=== PATIENT | male | born 1970 | race Caucasian/White ===

== ENCOUNTER 2021-03-07 10:01 | Outpatient (REF) | payer OTHER, SELFPAY ==
[2021-03-07 14:33] LABS: Alanine Aminotransferase 44 U/L (0-40); Albumin Level 4.5 g/dL (3.5-5.0); Alkaline Phosphatase 55 U/L (39-117); Anion Gap 12 (12-20); Aspartate Amino Transferase 28 U/L (5-37); Bilirubin Total 0.6 mg/dL (0.0-1.0); Blood Urea Nitrogen 16 mg/dL (9-16); Calcium 9.5 mg/dL (8.4-10.2); Carbon Dioxide 27 mmol/L (22-29); Chloride 108 mmol/L (96-108); Cholesterol 227 mg/dL; Estimated Glomerular Filt Rate > 60; Glucose Fasting 108 mg/dL (60-99); HDL Cholesterol 52 mg/dL; LDL Cholesterol Calculated 127 mg/dl; Potassium 4.9 mmol/L (3.3-5.1); Sodium 142 mmol/L (135-145); Total Protein 7.3 g/dL (6.5-8.0); Triglycerides 243 mg/dL
[2021-03-07 14:56] LABS: Prostate Specific Antigen Scr 0.88 ng/mL (<0.05-4.0); TSH reflex Free T4 0.96 uIU/mL (0.32-4.0)
== END 2021-03-07 10:02 | disposition home or self-care (01) ==
LOC: HO.WFDLNP 10:01
PROVIDERS: Visit Provider Family Medicine
DX: Z12.5 Encounter for screening for malignant neoplasm of prostate (principal); Z00.00 Encounter for general adult medical examination without abnormal findings
CPT/HCPCS: 80053; 80061; 84153; 84443

== ENCOUNTER 2021-03-22 14:09 | Outpatient (REF) | payer OTHER, SELFPAY ==
--- NOTE | ~2021-03-22 | XR_ITS ---
EXAMINATION: XR CHEST CLINICAL INFORMATION: Viral infection COMPARISON: None TECHNIQUE: 2 views of the chest were obtained. FINDINGS: No significant abnormality is noted involving the heart, lungs, mediastinum, bony thorax or soft tissues. XR/XR chest 2V IMPRESSION: No acute disease.
[2021-03-22 20:01] LABS: Influenza A PCR NEGATIVE (Negative); Influenza B PCR NEGATIVE (Negative); Resp Syncy Virus RNA Qual PCR NEGATIVE (Negative); SARS COV2 PCR INHOUSE NEGATIVE (Negative)
== END 2021-03-22 14:10 | disposition home or self-care (01) ==
LOC: HO.HMGCX 14:09
PROVIDERS: PCP Family Medicine; Visit Provider Family Medicine
DX: B34.9 Viral infection, unspecified (principal); Z20.822 Contact with and (suspected) exposure to COVID-19
CPT/HCPCS: 0241U; 36415; 71046; U0003; U0005

== ENCOUNTER 2021-06-22 09:53 | Outpatient (REF) | payer OTHER, SELFPAY ==
--- NOTE | ~2021-06-22 | XR_ITS ---
EXAMINATION: XR CERVICAL SPINE CLINICAL INFORMATION: Anesthesia of the skin. COMPARISON: None TECHNIQUE: 3 views of the cervical spine were obtained. FINDINGS: There is normal cervical lordosis. The vertebral heights and alignment is normal. There is loss of C6-C7 disc height with ventral spondylosis. Rest of the disc heights are normal. No visible acute fracture, dislocation or lytic process seen. There is posterior calcification along C3 spinous process. The soft tissues are normal. XR/XR cervical spine 2V IMPRESSION: There are degenerative disc changes C6-C7 disc level with ventral spondylosis. No visible acute fracture, dislocation or lytic process seen.
== END 2021-06-22 09:54 | disposition home or self-care (01) ==
LOC: HO.HMGCX 09:53
PROVIDERS: PCP Family Medicine; Visit Provider Family Medicine
DX: R20.0 Anesthesia of skin (principal); M79.601 Pain in right arm
CPT/HCPCS: 72040

== ENCOUNTER 2021-07-11 10:58 | Outpatient (RCR) | payer OTHER, SELFPAY ==
--- NOTE | 2021-07-11 15:54 | MHC.PT.EP ---
[facility] [place] Office [place] [facility] [place] Office [address] [place] [address] [phone] F: [phone] F: [phone] F: [phone] F: [phone] Physical Therapy Plan of Care Date of Evaluation: Date of Surgery: NA Diagnosis: R ARM PAIN AND R ARM NUMBNESS Assessment: Pt IS 51 YO RHD M WHO WORKS [employer] REFERRED TO PT FROM DR SÁNCHEZ WITH R UE PAIN/NUMBNESS. Pt PRESENTS WITH RADIAL NERVE INVOLVEMENT R UE. SXS IN R THUMB INCREASE WITH R CERV LAT FLEX, R SHLDER DEPRESSION. SXS DECREASE WHEN R SHLDER IS FLEXED (R ARM OVERHEAD) SHLDER IS ELEVATED (ON ARM REST OR WHILE STANDING) AND IN SUP. Pt WITH NEG PHALENS SIGN (SLIGHT + FOR THUMB SXS WITH REVERSE PHALENS). STRENGTH R SHLDER AND ELBOW TEST OUT WNLS ON R AND ROM AT R ELBOW AND SHLDER ARE WNLS. Pt WITH SOME DEGENERATIVE FINDINGS WITH CERV XRAY. AWAITING NEURO CONSULT. Pt ALSO WITH TTP/NERVE IRRITATION AT MEDIAL ELBOW R (ULNAR GROOVE) BUT DOES NOT C/O ULNAR NERVE SXS (NO PARESTHESIA IN 4TH/5TH FINGERS) Pt REPORTS NO SPECIFIC INJURY TO SHLDER OR NECK BUT MAY BE AN OVERUSE TYPE ISSUE ([employer]). SHOULD BENEFIT FROM PT TO HELP DECREASE PRESSURE ON RADIAL NERVE TO ALLOW FOR HEALING AND STRETCH UT/LEVATOR/PEC AND FOREARM MMS WITH STRENGTHENING RC/R UE. Frequency and Duration: The patient will be seen 2X/WK X 6 WKS Short Term Goals: 1. INCREASED POSTURE AWARENESS AND AWARENESS SHLDER/ELBOW CARE 2. DECREASED INTENSITY OF R THUMB PARESTHESIA 3. DECREASED FREQUENCY R THUMB PARESTHESIA 4. IMPROVED SLEEP [facility] Goals: 1. DECREASED PAIN R ELBOW AREA 2. NO R THUMB SXS ILLICITED WITH CERV LAT FLEX R OR IN SIT/STAND WITH R UE NOT SUPPORTED 3. I HEP Treatment Plan: Modalities to reduce pain, spasms and effusion. Manual therapy to restore motion and function. Therapeutic exercise to improve strength and flexibility. Neuromuscular re-education for posture and balance. Therapeutic activities to return to functional activities of daily living. Electronically signed by: MARIFER HURT PT Please sign and return to therapist. Thank you for your referral.
--- NOTE | 2021-08-01 14:32 | MHC.PT.DC ---
[facility] [place] Office [place] Office [place] Office [address] [place] [address] [phone] F: [phone] F: [phone] F: [phone] F: [phone] Physical Therapy Discharge Report Diagnosis: R ARM PAIN AND R ARM NUMBNESS Date of Surgery: NA Date of Evaluation: 07/11/21 Date of Discharge: 08/01/21 Treatments to Date: 1 Cancellations to Date: 1 No Shows to Date: 2 Discharge Status: Patient Elected to Stop Recommend MD Follow-up Visit Non-compliance Discharge Summary: Pt SEEN FOR [facility] ONLY (HE CANCELLED NEXT APPT THEN NO SHOWED 2 APPTS. NO FURTHER APPTS SCHEDULED) PER LICENSE CLERK, Pt REPORTS DEALING WITH SOME PERSONAL/FAMILY ISSUES AND WILL CONTACT US IF FURTHER PT NEEDED IN THE FUTURE. PER ASSESSMENT FROM [facility]: 'Pt IS 51 YO RHD M WHO WORKS [employer] REFERRED TO PT FROM DR SÁNCHEZ WITH R UE PAIN/NUMBNESS. Pt PRESENTS WITH RADIAL NERVE INVOLVEMENT R UE. SXS IN R THUMB INCREASE WITH R CERV LAT FLEX, R SHLDER DEPRESSION. SXS DECREASE WHEN R SHLDER IS FLEXED (R ARM OVERHEAD) SHLDER IS ELEVATED (ON ARM REST OR WHILE STANDING) AND IN SUP. Pt WITH NEG PHALENS SIGN (SLIGHT + FOR THUMB SXS WITH REVERSE PHALENS). STRENGTH R SHLDER AND ELBOW TEST OUT WNLS ON R AND ROM AT R ELBOW AND SHLDER ARE WNLS. Pt WITH SOME DEGENERATIVE FINDINGS WITH CERV XRAY. AWAITING NEURO CONSULT. Pt ALSO WITH TTP/NERVE IRRITATION AT MEDIAL ELBOW R (ULNAR GROOVE) BUT DOES NOT C/O ULNAR NERVE SXS (NO PARESTHESIA IN 4TH/5TH FINGERS) Pt REPORTS NO SPECIFIC INJURY TO SHLDER OR NECK BUT MAY BE AN OVERUSE TYPE ISSUE ([facility]). SHOULD BENEFIT FROM PT TO HELP DECREASE PRESSURE ON RADIAL NERVE TO ALLOW FOR HEALING AND STRETCH UT/LEVATOR/PEC AND FOREARM MMS WITH STRENGTHENING RC/R UE.' Electronically signed by: MARIFER HURT PT Please sign and return to therapist. Thank you for your referral.
== END 2021-08-01 14:33 | disposition home or self-care (01) ==
LOC: HO.PTWFD 10:58
PROVIDERS: Visit Provider Family Medicine
DX: R20.0 Anesthesia of skin (principal); M79.601 Pain in right arm
CPT/HCPCS: 97110; 97162; 97535

== ENCOUNTER → 2021-12-14 11:43 | Outpatient (BNVA) | payer OTHER, SELFPAY | PROVIDERS: PCP Family Medicine; Referring Provider Family Medicine; Visit Provider Nurse Practitioner | DX: Z12.11 Encounter for screening for malignant neoplasm of colon (principal); R10.9 Unspecified abdominal pain; R19.7 Diarrhea, unspecified | CPT/HCPCS: 99202 ==

== ENCOUNTER 2021-12-24 08:58 | Outpatient (REF) | payer OTHER, SELFPAY ==
[2021-12-24 11:07] LABS: MANUAL DIFF FLAG NO
[2021-12-24 11:26] LABS: Basophils Percent Auto 0.8 % (0-2); Eosinophils Absolute Auto 0.1 X10*3/uL (0.0-0.4); Eosinophils Percent Auto 1.8 % (0-4); Hematocrit 47.4 % (42.0-52.0); Hemoglobin 15.6 g/dl (14.0-18.0); Imm Gran Abs Auto 0.01 X10*3/uL (0.00-0.03); Imm Gran Pct Auto 0.3 % (0.0-0.4); Lymphocytes Absolute Auto 1.3 X10*3/uL (1.2-4.9); Lymphocytes Percent Auto 33.2 % (20-40); Mean Corpuscular HGB Conc 32.9 g/dl (31.0-36.0); Mean Corpuscular Hemoglobin 30.7 pg (27.0-33.0); Mean Corpuscular Volume 93.3 fL (80.0-98.0); Mean Platelet Volume 11.6 fL (9.4-12.4); Monocytes Absolute Auto 0.5 X10*3/uL (0.1-1.2); Monocytes Percent Auto 12.3 % (2-11); Neutrophils Percent Auto 51.6 % (45-73); Platelet Count 157 X10*3/uL (160-400); Red Blood Count 5.08 X10*6/uL (4.60-5.80); Red Cell Distribution Width 12.4 % (11.0-16.0); White Blood Count 3.8 X10*3/uL (4.8-10.8)
[2021-12-24 11:59] LABS: Amylase 35 U/L (28-100)
[2021-12-24 12:03] LABS: Alanine Aminotransferase 61 U/L (0-40); Albumin Level 4.3 g/dL (3.5-5.0); Alkaline Phosphatase 56 U/L (39-117); Anion Gap 13 (12-20); Aspartate Amino Transferase 37 U/L (5-37); Bilirubin Total 0.6 mg/dL (0.0-1.0); Blood Urea Nitrogen 17 mg/dL (9-16); Calcium 9.7 mg/dL (8.4-10.2); Carbon Dioxide 26 mmol/L (22-29); Chloride 106 mmol/L (96-108); Estimated Glomerular Filt Rate > 60; Glucose Random 96 mg/dL (60-115); Lipase 28 U/L (8-78); Potassium 4.5 mmol/L (3.3-5.1); Sodium 140 mmol/L (135-145); Total Protein 7.3 g/dL (6.5-8.0)
[2021-12-26 14:51] LABS: Gliadin Deamidated IgA Ab 2.2 U/mL; Gliadin Deamidated IgG Ab <1.0 U/mL; Transglutaminase Ab IgG <1.0 U/mL; Transglutaminase IgA <1.0 U/mL
== END 2021-12-24 08:59 | disposition home or self-care (01) ==
LOC: HO.WFDLDS 08:58
PROVIDERS: Visit Provider Nurse Practitioner
DX: R19.7 Diarrhea, unspecified (principal); R10.9 Unspecified abdominal pain; Z01.82 Encounter for allergy testing; Z12.11 Encounter for screening for malignant neoplasm of colon; W57.XXXA Bitten or stung by nonvenomous insect and other nonvenomous arthropods, initial encounter
CPT/HCPCS: 36415; 80053; 82150; 83690; 85025; 86003; 86258; 86364

== ENCOUNTER → 2022-01-15 12:22 | Outpatient (BNVA) | payer OTHER, SELFPAY | PROVIDERS: PCP Family Medicine; Referring Provider Family Medicine; Visit Provider Nurse Practitioner | DX: R10.9 Unspecified abdominal pain (principal); R19.7 Diarrhea, unspecified; R14.0 Abdominal distension (gaseous) | CPT/HCPCS: 99212 ==

== ENCOUNTER 2022-03-28 17:06 | Outpatient (REF) | payer OTHER, SELFPAY ==
--- NOTE | ~2022-03-28 | US_ITS ---
EXAMINATION: US VENOUS ULTRASOUND WITH DOPPLER LOWER EXTREMITY, RIGHT CLINICAL INFORMATION: Edema. Pain. COMPARISON: None TECHNIQUE: Ultrasound of the deep veins is performed from the hip to the calf with compression sonography and color and pulse Doppler assessment. Spectral analysis with color-flow imaging is performed. FINDINGS: There is normal venous compression and respiratory variation and augmented flow. The visualized common femoral vein, superficial femoral vein, profunda femoral vein, popliteal vein, and the trifurcation region shows no evidence of deep venous thrombosis. There is no significant popliteal fossa cyst. If the patient's symptoms persist, followup ultrasound in 5 days 7 days might be of value to exclude proximal propagation from a non-visualized calf vein. US/US venous duplex LE RT IMPRESSION: No DVT demonstrated in the right lower extremity.
== END 2022-03-28 17:07 | disposition home or self-care (01) ==
LOC: HO.US 17:06
PROVIDERS: PCP Family Medicine; Visit Provider Family Medicine
DX: R60.0 Localized edema (principal); M79.89 Other specified soft tissue disorders
CPT/HCPCS: 93971

== ENCOUNTER 2022-12-09 08:23 | Outpatient (REF) | payer OTHER, SELFPAY ==
[2022-12-09 11:31] LABS: Appearance Urine Turbid; Color Urine Yellow; Glucose Urine UA Negative (Negative); Leukocyte Esterase Urine Trace (Negative); Nitrite Urine Negative (Negative); Specific Gravity - Urine >= 1.030 (1.005-1.025); UMIC TRIGGER UA YES; Urine Blood Negative (Negative); Urine Ketones Trace mg/dL (Negative); Urine Protein Trace mg/dL (Neg-Trace)
[2022-12-09 11:34] LABS: Bacteria Urine None Seen (None Seen); Hyaline Casts Urine 0-2 /LPF (0-2); RBC Urine 0-2 /HPF (0-2); Squamous Epithelial Cell Urine 0-2 /HPF (0-2); WBC Urine 0-5 /HPF (0-5)
[2022-12-09 12:22] LABS: Microalbum/Creatinine Ratio Ur 3.3 ug/mg cr
[2022-12-09 12:40] LABS: Alanine Aminotransferase 47 U/L (0-40); Albumin Level 4.1 g/dL (3.5-5.0); Alkaline Phosphatase 53 U/L (39-117); Anion Gap 12 (12-20); Aspartate Amino Transferase 28 U/L (5-37); Bilirubin Total 0.8 mg/dL (0.0-1.0); Blood Urea Nitrogen 21 mg/dL (9-16); Calcium 9.5 mg/dL (8.4-10.2); Carbon Dioxide 27 mmol/L (22-29); Chloride 106 mmol/L (96-108); Cholesterol 178 mg/dL; Estimated Glomerular Filt Rate > 60; Glucose Fasting 114 mg/dL (60-99); HDL Cholesterol 47 mg/dL; LDL Cholesterol Calculated 108 mg/dl; Potassium 4.3 mmol/L (3.3-5.1); Sodium 141 mmol/L (135-145); Total Protein 6.4 g/dL (6.5-8.0); Triglycerides 117 mg/dL
[2022-12-09 13:00] LABS: Prostate Specific Antigen Scr 0.56 ng/mL (<0.05-4.0); TSH reflex Free T4 1.36 uIU/mL (0.32-4.0)
== END 2022-12-09 08:24 | disposition home or self-care (01) ==
LOC: HO.WFDLDS 08:23
PROVIDERS: Visit Provider Family Medicine
DX: Z00.00 Encounter for general adult medical examination without abnormal findings (principal); Z12.5 Encounter for screening for malignant neoplasm of prostate; I10 Essential (primary) hypertension
CPT/HCPCS: 36415; 80053; 80061; 81001; 82043; 84153; 84443

== ENCOUNTER 2022-12-25 11:35 | Outpatient (REF) | payer OTHER, SELFPAY ==
[2022-12-25 16:15] LABS: Influenza A PCR NEGATIVE (Negative); Influenza B PCR NEGATIVE (Negative); Resp Syncy Virus RNA Qual PCR NEGATIVE (Negative); SARS COV2 PCR INHOUSE NEGATIVE (Negative)
== END 2022-12-25 11:36 | disposition home or self-care (01) ==
LOC: HO.LAB 11:35
PROVIDERS: Visit Provider Nurse Practitioner Family
DX: J06.9 Acute upper respiratory infection, unspecified (principal); Z20.822 Contact with and (suspected) exposure to COVID-19
CPT/HCPCS: 0241U

== ENCOUNTER 2024-09-10 13:39 | Outpatient (REF) | payer OTHER, SELFPAY ==
--- NOTE | ~2024-09-10 | XR_ITS ---
EXAMINATION: XR LUMBOSACRAL SPINE CLINICAL INFORMATION: Lower back pain. COMPARISON: None available. TECHNIQUE: Three views of the lumbosacral spine. FINDINGS: There appear to be 6 nonrib-bearing lumbar-type vertebral bodies. Normal vertebral body alignment. The lumbar lordosis is maintained. No acute fracture or subluxation. No loss of vertebral body height. Lower lumbar spine loss of intervertebral disc height with endplate osteophytes and bilateral facet arthropathy. No concerning lytic or blastic osseous lesion. No abnormal soft tissue calcification. XR/XR lumbar spine 2-3V IMPRESSION: 1. There appear to be 6 nonrib-bearing lumbar-type vertebral bodies. 2. [id number] degenerative disc disease at the lower lumbar spine with bilateral facet arthropathy. Electronically signed by: Huber Acharya MD 09/10/2024 03:32 PM TRIXIE WHITT
== END 2024-09-10 13:40 | disposition home or self-care (01) ==
LOC: HO.HMGCX 13:39
PROVIDERS: PCP Family Medicine; Visit Provider Nurse Practitioner Family
DX: S39.012A Strain of muscle, fascia and tendon of lower back, initial encounter (principal)
CPT/HCPCS: 72100; 99212

== ENCOUNTER → 2024-09-10 13:39 | Outpatient (AMB) | payer OTHER, SELFPAY ==
--- NOTE | 2024-09-10 14:06 | AM.OFFWIN_ITS ---
Intake Vital Signs 09/10/24 14:21 Height 5 ft 9 in Weight 210 lb BMI 31.0 BP 140/94 H Blood Pressure Location Lt brachial Position Sitting Pulse 68 Pulse Source Pulse Oximeter Pulse Oximetry (%) 99 Oxygen Delivery Method Room Air Intake Visit Reasons: EP Pain on lower RT back Intake Note: Patient here for lower back pain that has been present for about 5 days Patient Tobacco Use Status: Former Tobacco user Allergies No Known Allergies Allergy (Verified 09/10/24 14:21) Do you need a note to return to daycare/school/sports/work: No HPI EP Pain on lower RT back HPI Details This is a 54-year-old male patient who presents to the walk-in clinic today with a 4-5 day history of right-sided lower back pain. He states he was carrying a very heavy box of books at the time, and felt a strain in his back. Did not fall or feel any popping sensations. He does have some intermittent back pain for which he sees a chiropractor with good effect. His chiropractor has been out of town for several weeks. He is experiencing constant right-sided lower back pain, which is exacerbated with standing up straight. He has been having difficulty getting comfortable for sleep. He denies any radiation of pain down legs or into groin. Denies any saddle anesthesia. Denies any leg weakness, numbness, or paresthesias. [facility] Social History Housing: House Alcohol intake: current Alcohol intake frequency: 3 or more drinks per day Alcohol type: beer and wine Patient Tobacco Use Status: Former Tobacco user e-Cigarette/Vaping Use: Never Used Second Hand Smoke Exposure: No service: No Current occupational status: employed Current occupational exposures/hazards: Yes Cognitive needs: No Hearing needs: No Vision needs: No Review of Systems Const All systems reviewed & are unremarkable except as noted in HPI and below Physical Exam Const General: cooperative and healthy appearing HEENT Ears: hearing grossly normal bilaterally Neck Neck: Yes normal visual inspection and Yes full ROM Resp Effort & Inspection: normal respiratory effort General: Yes no CVA tenderness Back/Spine/Pelvis Back: no CVA tenderness Thoracic/Lumbar Spine: thoracic and lumbar spine normal to inspection, straight leg raise negative bilaterally, pain with thoraco-lumbar ROM (no vertebral tenderness), paraspinal muscle tenderness on the right in the upper lumbar and thoraco-lumbar ROM limited with forward flexion, with lateral flexion to the right and with lateral flexion to the left Pelvis: no pain with anterior-posterior compression Skin General skin exam: no rashes or lesions noted Neuro General: moves all extremities and deep tendon reflexes 2+ bilaterally Extrem General: Yes capillary refill normal and Yes no clubbing, cyanosis or edema Psych Appearance: grossly normal Mental Status: mental status grossly normal Speech and movement: Normal speech and movement present Assessment & Plan Assessment & Plan (1) Acute lumbar myofascial strain: Code(s): S39.012A - Strain of muscle, fascia and tendon of lower back, initial encounter Qualifiers: Encounter type: initial encounter Qualified Code(s): S39.012A - Strain of muscle, fascia and tendon of lower back, initial encounter Plan: Likely myofascial strain on that right upper lumbar area. No radicular symptoms. I will start him on a short course of muscle relaxers and NSAIDs. We reviewed indications, use, possible side effects of these medications. Reviewed heat application and gentle stretching of area as tolerated. Has had intermittent back pain over the last several years. Due to this, I will obtain a baseline lumbar spine x-ray. Patient aware that he will be notified of these results once they are available. If he does not improve with time and measures discussed, or if symptoms worsen or if he develops any radicular symptoms such as radiation of pain, leg weakness/numbness, or saddle anesthesia, he should return to the clinic or ED for further evaluation. (2) Lower back pain: Code(s): M54.50 - Low back pain, unspecified Qualifiers: Chronicity: acute Back pain laterality: right Sciatica presence: with out sciatica Qualified Code(s): M54.50 - Low back pain, unspecified Plan: As above Orders: Orders XR lumbar spine 2-3V Today M54.50 - Low back pain, unspecified Medications: New ibuprofen Take one tablet by mouth up to 3 times a day as needed for pain. 800 mg PO TID 10 days PRN 30 tabs 0RF pain M54.50 - Low back pain, unspecified, S39.012A - Strain of muscle, fascia and tendon of lower back, initial encounter cyclobenzaprine Take 1 tablet by mouth up to 3 times a day as needed for lower back pain/spasms. 10 mg PO TID 5 days PRN 15 tabs 0RF muscle spasm M54.50 - Low back pain, unspecified, S39.012A - Strain of muscle, fascia and tendon of lower back, initial encounter Coding Level of Care Code Est Pt Level 4 (67012) Diagnoses Acute myofascial strain of lumbar region, initial encounter S39.012A Encounter type: initial encounter Acute right-sided low back pain without sciatica M54.50 Chronicity: acute Back pain laterality: right Sciatica presence: without sciatica
[2024-09-10 14:21] VITALS: BP 140/94; PULSE 68; O2SAT 99; BMI 31.0
== END ==
PROVIDERS: PCP Family Medicine; Visit Provider Nurse Practitioner Family
DX: S39.012A Strain of muscle, fascia and tendon of lower back, initial encounter (principal); M54.50 Low back pain, unspecified